=== PATIENT | female | born 1960 | race Caucasian/White ===

== ENCOUNTER 2017-12-16 16:09 | Outpatient (CLI) | payer BC | END 2017-12-16 16:10 | disposition home or self-care (01) | LOC: BICMAMMO 16:09 | DX: Z12.31 Encounter for screening mammogram for malignant neoplasm of breast (principal); R92.1 Mammographic calcification found on diagnostic imaging of breast | CPT/HCPCS: 77063; 77067 ==

== ENCOUNTER 2018-12-17 15:06 | Outpatient (CLI) | payer BC ==
--- NOTE | 2018-12-17 16:29 | MMO ---
Bilateral MAMMO Bilat Screen [facility]. CLINICAL HISTORY: Patient is 58 years old and is seen for screening. The patient has no family history of breast cancer. The patient has no personal history of cancer. VIEWS: The views performed were: bilateral craniocaudal; bilateral craniocaudal with tomosynthesis; and bilateral mediolateral oblique with tomosynthesis. FILMS COMPARED: The present examination has been compared to prior imaging studies performed at [facility] on 12/13/2015, 12/15/2016 and 12/16/2017, and at [facility] on 08/18/2013 and 11/21/2014. MAMMOGRAM FINDINGS: There are scattered fibroglandular densities. There are no suspicious masses, suspicious calcifications, or new areas of architectural distortion. IMPRESSION: THERE IS NO MAMMOGRAPHIC EVIDENCE OF MALIGNANCY. A ROUTINE FOLLOW-UP MAMMOGRAM IN 1 YEAR IS RECOMMENDED. THE RESULTS OF THIS EXAM WERE SENT TO THE PATIENT. ACR BI-RADS Category 1 - Negative MAMMOGRAPHY NOTE: 1. A negative mammogram report should not delay a biopsy if a dominant of clinically suspicious mass is present. 2. Approximately 10% to 15% of breast cancers are not detected by mammography. 3. Adenosis and dense breasts may obscure an underlying neoplasm.
== END 2018-12-17 15:07 | disposition home or self-care (01) ==
LOC: BICMAMMO 15:06
DX: Z12.31 Encounter for screening mammogram for malignant neoplasm of breast (principal)
CPT/HCPCS: 77063; 77067

== ENCOUNTER 2023-12-22 13:55 | Outpatient (CLI) | payer BC | END 2023-12-22 13:56 | disposition home or self-care (01) | LOC: BICRAD 13:55 | PROVIDERS: ATTEND Family Medicine | DX: M54.50 Low back pain, unspecified (principal); M47.816 Spondylosis without myelopathy or radiculopathy, lumbar region; M47.817 Spondylosis without myelopathy or radiculopathy, lumbosacral region | CPT/HCPCS: 72100 ==

== ENCOUNTER 2024-04-08 08:41 | Outpatient (CLI) | payer BC | END 2024-04-08 08:42 | disposition home or self-care (01) | LOC: BICMAMMO 08:41 | PROVIDERS: ATTEND Family Medicine | DX: M85.89 Other specified disorders of bone density and structure, multiple sites (principal) | CPT/HCPCS: 77080 ==

== ENCOUNTER 2024-08-12 19:44 | Emergency (ER) | payer BC, OTHER ==
[2024-08-12] MEDS ORDERED: Ketorolac Tromethamine 30 MG (1 mL) VIAL ONE (20:48)
== END 2024-08-12 20:50 | disposition home or self-care (01) ==
LOC: ERS 19:44
DX: S16.1XXA Strain of muscle, fascia and tendon at neck level, initial encounter (principal); S40.012A Contusion of left shoulder, initial encounter; I10 Essential (primary) hypertension; V49.9XXA Car occupant (driver) (passenger) injured in unspecified traffic accident, initial encounter
CPT/HCPCS: 70450; 71045; 72125; 96372; J1885

== ENCOUNTER 2024-09-01 11:50 | Outpatient (CLI) | payer BC | END 2024-09-01 11:51 | disposition home or self-care (01) | LOC: BICRAD 11:50 | PROVIDERS: ATTEND Family Medicine | DX: R05.9 Cough, unspecified (principal); K44.9 Diaphragmatic hernia without obstruction or gangrene; R91.8 Other nonspecific abnormal finding of lung field | CPT/HCPCS: 71046 ==

== ENCOUNTER 2024-09-12 10:47 | Outpatient (CLI) | payer BC | END 2024-09-12 10:48 | disposition home or self-care (01) | LOC: BICRAD 10:47 | PROVIDERS: ATTEND Physical Medicine & Rehabilitation | DX: M54.50 Low back pain, unspecified (principal); M25.552 Pain in left hip; M25.551 Pain in right hip; M43.16 Spondylolisthesis, lumbar region; M47.814 Spondylosis without myelopathy or radiculopathy, thoracic region; M51.34 Other intervertebral disc degeneration, thoracic region; S32.010D Wedge compression fracture of first lumbar vertebra, subsequent encounter for fracture with routine healing; M25.78 Osteophyte, vertebrae; M16.11 Unilateral primary osteoarthritis, right hip | CPT/HCPCS: 72100 ==